=== PATIENT | female | born 1945 | race Caucasian/White ===

== ENCOUNTER 2017-01-23 11:56 | Inpatient (IN) | payer MEDICARE ==
--- NOTE | ~2017-01-23 | DS ---
Discharge Summary [place] [id number] [facility] [place]. [address] NAME: ROSANGELA MOONEY : 43 STATUS : DIS IN PAT#: [id number] AGE: 71 ADM/REG DATE : 01/23/17 MR#: [id number] REPORT SERV DATE: 02/02/17 DICTATED BY: PAIGE NG DATE: 02/01/17 REPORT STATUS : Draft TRANSCRIBED BY: ROMAINE DATE: 02/01/17 Data Collection from hospitalization DISCHARGE DIAGNOSES: 1. 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 2. Hypertension. 3. Type 2 diabetes. 4. History of methicillin-resistant Staphylococcus aureus bacteremia. 5. History of cerebrovascular accident. 6. Restless legs syndrome. 7. Presbyopia. 8. Myopia. 9. History of aortic valve stenosis. 10.History of transient ischemic attack. 11.Chronic diastolic congestive heart failure with ejection fraction around 60%. 12.Depression. 13.Anemia. 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 15.Hypercholesterolemia. 16.Obstructive sleep apnea - on CPAP. 17.Arthritis. 18.Gastroesophageal reflux disease. 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 20.Stage III chronic kidney disease. 21.Hypothyroidism. CONSULTATIONS: 1. Antione Umana M.D. 2. Giana Cline NP. PROCEDURES PERFORMED: Left total knee resection, removal of deep hardware and plate, 01/23/2017. PATHOLOGY: Tissue from left knee - benign soft tissue with fibrosis and old hemorrhage and areas of granulation tissue and mixed inflammation and marked reactive changes. Areas of medullary bone with osteoblastic activity and fibrosis and focal osteoclastic resorption with areas of bone destruction and granulation tissue with focal changes consistent with acute osteomyelitis, normocellular bone marrow particles, orthopedic hardware and cement (gross examination). MEDICATIONS: Elavil 50 mg at bedtime, Lexapro 5 mg daily, Maxipime 1 g IV every six hours as instructed, Colace 100 mg twice a day, Pepcid 20 mg twice a day, ferrous sulfate 300 mg with breakfast and supper, Neurontin 800 mg twice a day, NovoLog injection insulin as instructed, Synthroid 225 mcg daily, Theragran tablets one tablet with breakfast, Bactroban 1 g topically twice a day as instructed - stop on 01/28/2017, Requip 1 mg daily and 2 mg at bedtime, Coumadin as instructed, vancomycin as instructed, Levemir 10 units subcutaneously at bedtime, Tylenol 650 mg orally or rectally every four hours as needed, Mylanta 30 mL as needed, Dulcolax 10-15 mg orally or rectally as needed, dextrose 25 mL IV as needed - 50 mL Discharge Summary [place] [address] [place]. [address] NAME: ROSANGELA MOONEY : 43 STATUS : DIS IN PAT#: [id number] AGE: 71 ADM/REG DATE : 01/23/17 MR#: [id number] REPORT SERV DATE: 02/02/17 DICTATED BY: PAIGE NG DATE: 02/01/17 REPORT STATUS : Draft TRANSCRIBED BY: ROMAINE DATE: 02/01/17 IV as needed, Benadryl 25 mg every six hours as needed, glucagon 1 mg IM as needed, glucose tablets three-six tablets as needed, milk of magnesia 30 mL as needed, MS Contin 15 mg with lunch as needed, Zofran 4 mg every four hours as needed orally or IV, MiraLAX powder one packet twice a day as needed, Proventil 3 mL via inhaler as needed, ProAir two puffs via inhaler as needed, and Percocet 5/325 one to two tablets every four to six hours as needed for pain. CONDITION AT DISCHARGE: Stable. DISPOSITION: The patient was discharged to [facility] on a diabetic diet with activities as instructed. She would follow up with me on 02/05/2017. HOSPITAL COURSE: This is a 71-year-old female who had septic left total knee with long stems and plate. Treatment options were discussed and it was elected to proceed with surgical intervention. She was admitted to the hospital at this time for further evaluation and treatment. Upon admission, she was taken to the operating room where she underwent the above-mentioned procedure. She tolerated this well, and there were no complications. Postoperatively, she was seen by Giana Cline regarding medical management. The patient has type 2 diabetes. She does check her blood sugars at home twice a day. She says her blood sugars average between 100-150. She is normally on Levemir at bedtime as well as sliding scale Novolin 70/30. This was going to be held at this time. Level 2 sliding scale insulin was started. Hypoglycemic protocol will be in place. She was going to undergo diabetes education. She was placed on a diabetic diet. Hemoglobin A1c was going to be obtained. The patient wears a CPAP at home for obstructive sleep apnea. Her home CPAP would be continued at bedtime. Albuterol treatments would be provided as needed for shortness of breath. We would do continuous O2 saturation monitoring while she was an inpatient. She is on levothyroxine for hypothyroidism. TSH was going to be checked. The patient said that ever since she had Guillain-[place] in 1997 she has had residual neuropathy in her fingers and feet, as well as because she is a diabetic, Neurontin, Elavil, and Requip were continued. She has a history of hypertension and congestive heart failure as well as stroke in the past as well as pulmonary hypertension and aortic valve stenosis. Hydralazine would be added as needed. She has a small decubitus area that is approximately dime-sized on her left buttock. Wound Care was consulted to see the patient. On postop day #1, she was seen by Dr. Antione Umana for evaluation and treatment of total knee arthroplasty revision infection. The patient said she has had difficulty with wound healing and the knee never felt quite right. She had done well in general for several months, but over the past one to two months had grown worse with increasing pain to the point that she could no longer stand on it. It became warm and hot over the past few weeks. She has had no fevers, chills, malaise, or flu-like symptoms and nothing to suggest a systemic infection. There had been no trauma or unusual environmental exposures since surgery. She was recently placed on Duricef and was taking that right up to the time of surgery. Prior to surgery, her white blood cell count was 8.3 and it was now 11.4. Creatinine was 1.38. Cultures were growing both gram-positive cocci and gram-negative rods. Followup cultures would be obtained and antibiotics would be adjusted. She was going to be covered empirically with vancomycin and cefepime. She was evaluated by Physical Therapy. She underwent diabetes education. The patient was very Discharge Summary [address] [address] NAME: MORENO MOONEYJOSEPHINE WINKLER : 43 STATUS : DIS IN PAT#: [id number] AGE: 71 ADM/REG DATE : 01/23/17 MR#: [id number] REPORT SERV DATE: 02/02/17 DICTATED BY: PAIGE NG DATE: 02/01/17 REPORT STATUS : Draft TRANSCRIBED BY: ROMAINE DATE: 02/01/17 pale. She denied chest pain or shortness of breath. Her dressing was saturated. She did not have a brace in place. Amitriptyline was being provided. Levemir and sliding scale insulin were continued. She did complain of left leg pain. She was transfused. She was evaluated by Occupational Therapy. On postop day #2, she still complained of pain. Her T- max was 99.4. Vancomycin and cefepime were continued. Discharge planning was performed. On 01/26/2017, she was afebrile. Her lungs were clear. White count was 6.6. Cultures had revealed E. coli/MRSA, it was felt that she would need six weeks of antibiotics. Vancomycin and Maxipime were continued at this time. She had received two units of packed red blood cells. Discharge planning continued. On 01/26/2017, a PICC line was placed. She had normal distal pulses. IV vancomycin and Maxipime were continued. Coumadin was on hold. Discharge instructions were given. Due to her improved and stable condition, she was discharged to [facility] with the above-stated instructions. Information collected by: Obdulia Raymundo I submit the above information as my discharge summary. CARYN/ROMAINE Julita Ng M.D. / [id number] CC: Kaylen Feliz M.D. [facility] Antione Umana M.D.
--- NOTE | ~2017-01-23 | CN ---
Consultation Report [facility] [address] [place]. [address] NAME: ROSANGELA MOONEY : 43 STATUS : ADM IN PAT#: [id number] AGE: 71 ADM/REG DATE : 01/23/17 MR#: [id number] REPORT SERV DATE: 01/24/17 DICTATED BY: GIANA DURAN DATE: 01/24/17 REPORT STATUS : Draft TRANSCRIBED BY: MODL DATE: 01/24/17 CONSULTATION DATE OF CONSULTATION: 01/23/2017 REASON FOR CONSULTATION: Consulted for medical management. REQUESTING PHYSICIAN: Shane Stewart M.D. IDENTIFYING DATA: 1. PCP, Suad Keating M.D. 2. Previous surgeon, Shane Gilliam M.D. 3. Recruiting Manager in the past, Bradley Jones M.D., last seen by Dr. Zelalem Fatima. 4. Pulmonology, Reddy Schneider M.D. 5. Insurance Claims Representative in the past, Dedrick Ball M.D. 6. REEL AND REWINDER OPERATOR oncology, Izaiah Beebe M.D. 7. Neurologist seen in the past, Adriana Goldman M.D. HISTORY OF PRESENT ILLNESS: This is a pleasant 71-year-old female who has had an extensive past medical history which is included a Guillain-[place] in 1997 with neuropathy, residual to her fingers and feet; chronic diastolic congestive heart failure with an EF around 60%; stroke in the past in 1997; hypothyroidism; diabetes type 2; numerous orthopedic surgeries as well as being followed presently for history of ovarian cancer that is metastatic stage IV to her omentum under the care of Dr. Beebe. The patient's history was obtained through interview with the patient as well as review of [facility] and [facility]. The Hospitalist Group has been consulted for medical management postoperatively while the patient is inpatient. PAST MEDICAL HISTORY: 1. MRSA bacteremia. 2. CVA in 1997. 3. Restless legs syndrome. 4. Presbyopia. 5. Myopia. 6. Aortic valve stenosis. 7. TIA. 8. Hypertension. 9. Chronic diastolic congestive heart failure with EF around 60%. 10.Murmur. 11.Previous problem with anesthesia with blood pressure and respiratory compromise. 12.Depression. 13.Anemia. 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 15.High cholesterol. Consultation Report [facility] [address] [place]. [address] NAME: ROSANGELA MOONEY : 43 STATUS : ADM IN PAT#: [id number] AGE: 71 ADM/REG DATE : 01/23/17 MR#: [id number] REPORT SERV DATE: 01/24/17 DICTATED BY: GIANA DURAN DATE: 01/24/17 REPORT STATUS : Draft TRANSCRIBED BY: ROMAINE DATE: 01/24/17 16.DVT to the neck postoperatively in 1995. 17.Esophageal stricture. 18.Obstructive sleep apnea, on CPAP. 19.Arthritis. 20.GERD. 21.Ovarian cancer with metastasis to the omentum, stage IV. 22.Chronic kidney disease, stage 3. 23.Diabetes type 2. 24.Hypothyroidism. 25.Renal calculi. HOME MEDICATIONS: 1. Albuterol MDI two puffs inhalation p.r.n. shortness of breath. 2. Proventil 0.5 mL inhalation solution per nebulizer inhalation p.r.n. 3. Elavil 50 mg p.o. at bedtime. 4. Lasix 20 mg p.o. daily p.r.n. 5. Neurontin 400 mg two tablets p.o. twice a day. 6. Novolin 70/30 for which patient states she takes a sliding scale three times daily. 7. Levemir 10 units subcu at bedtime. 8. Levothyroxine, dose is unverified. The patient states she takes two different kinds of thyroid medications. 9. MS Contin 15 mg p.o. every 12 hours. 10.MS Contin 15 mg p.o. in the afternoon as an additional p.r.n. 11.Centrum multivitamins with minerals one tablet p.o. daily. 12.Percocet 10/325, one tablet, p.o. every four hours p.r.n. pain. 13.Requip 1 mg p.o. twice a day. The patient states she takes one tablet in the morning and two tablets at bedtime. 14.Potassium, undefined dosage, which the patient says she takes p.r.n. when she takes Lasix. ALLERGIES: CODEINE. SOCIAL HISTORY: The patient is a . She has two sons and one daughter. She has a daughter and granddaughter who lives with her. She utilizes a walker as needed to ambulate. She has a three-yana home, but she lives on the main level. No tobacco, alcohol, or illicit drug use. FAMILY HISTORY: Clarification, mother had "heart problems," CHF, and was diabetic. Father had lung cancer and was at 69 years old, which was around 1992. The patient has two brothers, the older had back surgery six months ago and has prostate cancer and the younger brother is obese and has respiratory problems. SURGICAL HISTORY: 1. Left knee total arthroplasty in 1995. 2. Surgery with hardware in August of 2016. Consultation Report [address] [address] NAME: ROSANGELA MOONEY : 43 STATUS : ADM IN [facility]#: [id number] AGE: 71 ADM/REG DATE : 01/23/17 MR#: [id number] REPORT SERV DATE: 01/24/17 DICTATED BY: GIANA DURAN DATE: 01/24/17 REPORT STATUS : Draft TRANSCRIBED BY: ROMAINE DATE: 01/24/17 3. Hysterectomy. 4. Tubal ligation in 1969. 5. Cholecystectomy in 1965. 6. Right carpal tunnel release. 7. Bilateral cataract surgery in 2000. 8. Back surgeries x2. 9. Bone graft surgery to the left femur in 2007. 10.Right total knee arthroplasty in 1995. 11.Left total knee with partial hardware removal on 11/11/2014. 12.C-spine fusion in 1995. 13.Left hip with hardware removal on 11/11/2014. 14.Right Port-A-Cath insertion. 15.Previous tracheostomy. REVIEW OF SYSTEMS: Negative other than what is included in the HPI. The patient is alert and oriented. She has no shortness of breath. No nausea or vomiting. No abdominal pain. No chest pain. No fever. Displays no confusion or agitation. The patient does complain of pain at her op site, which was the revision of her left TKA for which she is receiving IV medication presently. PHYSICAL EXAMINATION: VITAL SIGNS: From today, blood pressure 152/69, respiratory rate 18, heart rate 82, and O2 saturation 99% on 2 L nasal cannula. GENERAL: This is a very pleasant, 71-year-old female. She is obese. She is resting in bed. She does complain of pain postop and is receiving IV medication at present time. NEURO: Her head is atraumatic, normocephalic. She is alert and oriented x3. Cranial nerves intact. Her mood is pleasant and appropriate. NECK: Her neck is supple. Trachea is midline. No JVD noted. No obvious thyromegaly or lymphadenopathy. EENT: Her sclerae are nonicteric. Pupils are equal and reactive to light. Nares are patent. Mucous membranes moist. Tongue is midline. Soft palate rises equally on phonation. CHEST: No pain with palpation. She does have a Port-A-Cath intact to right chest. LUNGS: Clear to auscultation bilaterally. She has normal respiratory effort. She has no increased work of breathing with conversation. CARDIOVASCULAR: S1, S2. She is positive for murmur. No rubs or gallops. She is on defensive monitoring, has a regular rhythm. Rate at 82. ABDOMEN: Obese, soft, nontender. Bowel sounds are hypoactive. No palpable organomegaly. EXTREMITIES: Normal distal pulses. No calf tenderness. No edema. At her ankles, she does have bilateral TEDs intact for DVT prophylaxis. She also has a left knee immobilizer from revision of her left TKA. SKIN: Warm and dry. No unusual rashes or lesions. Normal color and turgor for age. PSYCH: The patient is pleasant, cooperative, appropriate mood and affect. Consultation Report [address] [place]. [address] NAME: ROSANGELA MOONEY : 43 STATUS : ADM IN [facility]#: [id number] AGE: 71 ADM/REG DATE : 01/23/17 MR#: [id number] REPORT SERV DATE: 01/24/17 DICTATED BY: GIANA DURAN DATE: 01/24/17 REPORT STATUS : Draft TRANSCRIBED BY: MODL DATE: 01/24/17 SURGICAL WOUND SITE: She has a dressing that is clean, dry, and intact. LABORATORY DATA: Sodium 136, potassium 4.9, chloride 102, BUN 19, creatinine 1.19, GFR 53, glucose 112, and calcium 8.9. White blood cell 8.3, hemoglobin 9.9, hematocrit 31.8, and platelets 387. INR 1.3. Her blood sugars are 111, 167, and presently 224. On 12/26/2016, she had an EKG that showed a normal sinus rhythm with some sinus arrhythmia at a rate of 65. On 07/30/2016, she had a TTE that displayed left ventricular systolic function at 57%. Mild aortic and pulmonic regurgitation and aortic sclerosis with mild stenosis and borderline right ventricular diastolic function. On 08/03/2014, an echo showed an EF of 60% with normal left ventricular function and mild aortic stenosis. ASSESSMENT AND PLAN: 1. The patient has diabetes type 2. She does check her blood sugars at home twice a day. She says she averages between 100 to 150. The patient is normally on Levemir at bedtime as well as a sliding scale of Novolin 70/30, which will be held at this time. We will place the patient on a sliding scale insulin level 2 with blood sugars a.c. and at bedtime with a hypoglycemic protocol. We will have a calf skinner discuss dietary regimen as well as monitoring of blood glucose. She is on an 1800 ADA diet. She states her daughter cooks at home. Her daughter would need to be available for information regarding the patient's diabetic diet. We will check hemoglobin A1c this morning. 2. Obstructive sleep apnea. The patient wears a CPAP at home. We will continue her home CPAP at bedtime. She has albuterol treatments p.r.n. as needed for shortness of breath and we will do continuous O2 saturation monitoring while she is inpatient. 3. Hypothyroidism. Aware. She is on levothyroxine at home. She is unsure of her dose. She states she takes two types of medications. Staff will need to verify the doses in the morning either with her daughter or her PCP. We will check a TSH in a.m. labs. 4. Neuropathy. Aware. The patient states ever since she had Guillain-Boncarbo in 1997, she has had some residual neuropathy in her fingers and feet as well as being diabetic. We will continue her Neurontin, her Elavil, and Requip. 5. Hypertension. Aware. She does have a history of congestive heart failure, stroke in the past as well as pulmonary hypertension, and aortic valve stenosis. We will continue to monitor blood pressure. We will add hydralazine if needed. Staff can call if the patient's systolic blood pressure is greater than 165. 6. Skin wound noted to patient's left buttock. There is mild decubitus area approximately dime-sized for which Wound Care is consulted to see her in the a.m. 7. Labs for a.m. BMP, CBC, PT, magnesium, phosphorus, TSH, BNP, and hemoglobin A1c. The Hospitalist Group would like to thank you for this consultation. Please let us know if we could be of further assistance. /ROMAINE Giana Duran, Consultation Report [address] [address] NAME: ROSANGELA MOONEY : 43 STATUS : ADM IN [facility]#: [id number] AGE: 71 ADM/REG DATE : 01/23/17 MR#: [id number] REPORT SERV DATE: 01/24/17 DICTATED BY: GIANA DURAN DATE: 01/24/17 REPORT STATUS : Draft TRANSCRIBED BY: ROMAINE DATE: 01/24/17 VEHICLE REFINISHER / [id number] CC: Kaylen Feliz M.D.
--- NOTE | ~2017-01-23 | CN ---
Consultation Report [facility] [address] [place]. [address] NAME: ROSANGELA MOONEY : 43 STATUS : ADM IN PAT#: [id number] AGE: 71 ADM/REG DATE : 01/23/17 MR#: [id number] REPORT SERV DATE: 01/25/17 DICTATED BY: TANO HENDERSON DATE: 01/24/17 REPORT STATUS : Draft TRANSCRIBED BY: MODMiles DATE: 01/24/17 INFECTIOUS DISEASE CONSULT DATE OF CONSULTATION: 01/24/2017 REASON FOR REFERRAL: Evaluation and treatment of total knee arthroplasty revision infection. HISTORY OF PRESENT ILLNESS: The patient is a 71-year-old female. She has history of hypertension, diabetes mellitus, congestive heart failure, hypothyroidism, gout, diabetes, ovarian cancer, and aortic stenosis. She had Guillain-[place] syndrome in 1997, cerebrovascular accident at the same time. She has had a hip open reduction internal fixation serious infection 2013 with Staph. She had a total knee arthroplasty revision done because of failure of prosthesis in 07/2016. She said she had difficulty with wound healing and the knee never felt quite right but generally did well for several months but in the last one to two months has grown worse with increasing pain to the point she could no longer stand on it. It grew warm and hot within the last few weeks. She had no fevers, chills, malaise, or flu-like symptoms, nothing to suggest a systemic infection. She has had no trauma or unusual environmental exposures to it since the surgery. She had been recently placed on Duricef and she was taking that right up to the time of surgery. PAST MEDICAL HISTORY: Otherwise unremarkable. MEDICATIONS: She has received perioperative Ancef and vancomycin. ALLERGIES: SHE HAS NO KNOWN ANTIMICROBIAL ALLERGIES. SOCIAL HISTORY: She is , lives with daughter and granddaughter, nonsmoker. No history of alcohol or substance abuse. FAMILY HISTORY: Noncontributory. PHYSICAL EXAMINATION: GENERAL: Nontoxic, elderly, female, in no acute distress. She is alert and oriented x3. VITAL SIGNS: Temperature at present is 97.7, pulse 67, respirations 12, and blood pressure 88/39. Weight is 104 kg. HEENT: Sclerae clear. No oral lesions. NECK: Supple. LUNGS: Clear. HEART: Regular rate and rhythm. ABDOMEN: Soft, nontender. Positive bowel sounds. EXTREMITIES: The left knee where she had removal of the prosthesis last evening is covered by surgical dressing, which is dry at present. No other extremity lesions noted. LABORATORY DATA: Her white blood cell count prior to surgery was 8.3, it is 11.4 today with Consultation Report [place] [id number] [place]. [address] NAME: ROSANGELA MOONEY : 43 STATUS : ADM IN PAT#: [id number] AGE: 71 ADM/REG DATE : 01/23/17 MR#: [id number] REPORT SERV DATE: 01/25/17 DICTATED BY: TANO HENDERSON DATE: 01/24/17 REPORT STATUS : Draft TRANSCRIBED BY: MODMiles DATE: 01/24/17 hematocrit 23.2, platelets 260, unremarkable differential. BUN and creatinine 21 and 1.38. The cultures are growing both gram-positive cocci and gram-negative rods, those do reflect cultures taken prior to surgery and at surgery yesterday. IMPRESSION: Infected total knee arthroplasty revision, appears to be due to two different organisms. RECOMMENDATION: 1. We will follow up cultures tomorrow, adjust antibiotics as indicated. 2. For now, cover empirically with vancomycin, cefepime to cover the types of organisms that have been seen on early growth. 3. Finally, I will follow the patient with you. I appreciate very much your consulting on this patient. JOSEPHINE/ROMAINE Tano Henderson M.D. / [id number] CC: Kaylen Feliz M.D.
--- NOTE | ~2017-01-23 | OP ---
Record Of Operation [facility] [address] [place]. 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 PROCEDURE: Left total knee resection, removal deep hardware plate. 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 DESCRIPTION OF PROCEDURE: The patient was taken to the operating room and placed supine on the table in normal fashion without incident. General anesthetic was induced per the anesthesiologist. Patient was carefully positioned, padded, prepped, and draped in normal sterile fashion. Left lower extremity was elevated tourniquet inflated to 350 with a sterile tourniquet. Sharp dissection was made through the old incision with electrocautery through the fat. There was abundant thick and nonpliable scar tissue basically in one thick layer of the skin tendon and down to the bone. This was all meticulously dissected much of the scar tissue, resected, but still required a quad tendon turned down because it was too stiff to allow any motion. What appeared to be gross purulence from around the tibia and up in the thigh were sent for cultures. The dissection proceeded with periosteal elevation, resection of arthrofibrotic tissue, and lysis of adhesions to reveal the plate, which was removed by taking out the screws. The femoral and tibial components were removed with osteotome. Cement was debrided as was granulation tissue. The oscillating saw used to remove the patella and cement. There was severe osteoporosis throughout. The bony cuts were freshened up with soft intramedullary canals debrided with curette and rongeur meticulously. All was copiously irrigated with pulsatile lavage x3 liters. We then completely re-draped and re-gowned for the new setup, irrigated with three more liters of pulsatile lavage, and placed a cement block from three packs of premixed antibiotic cement with 2 g of vancomycin added in a doughy phase, and the knee held in place until it was hardened. The knee was then closed in a layered fashion. The wound was dressed sterilely. Patient awakened and taken to the postanesthesia care unit without incident. COMPLICATIONS: None. SPECIMENS: Components and cultures as described. BLOOD LOSS: Trace. ANA/ROMAINE Julita Ng M.D. Record Of Operation [address] [address] NAME: ROSANGELA MOONEY : 43 STATUS : ADM IN [facility]#: [id number] AGE: 71 ADM/REG DATE : 01/23/17 MR#: [id number] REPORT SERV DATE: 01/24/17 DICTATED BY: PAIGE NG DATE: 01/24/17 REPORT STATUS : Draft TRANSCRIBED BY: ROMAINE DATE: 01/24/17 / [id number] CC: Kaylen Feliz M.D.
[~2017-01-23 11:56] MED LIST: *UNABLE1; ALBUTEROL5 INH; AMARYL4 PO; AMIT50 PO; ASAB PO; ATROVENT HFA17 MCG INH; BARRIER CREAM TOP; BEN25 PO; BIST PO; CENTRUM PO; COREG3 PO; DEMA100 PO; DIL2TAB PO; DITROXL5 PO; DSS PO; ELAVIL PO; FERROUS SULF324 MG PO; FIORICET OR; GABAPENTIN PO; GENTEAL 15 ML O15 ML OPH; GLUCAGON SC; HALF81 PO; HUMULIN SC; INSNOV7030 SC; INSNOVR; INSNOVR SC; INSULIN 70/30 SC; IRON325 MG PO; K500 PO; KLONO2 PO; KLONO5 PO; KLOR-CON 1010 MEQ PO; KLOR-CON M1010 MEQ PO; KLOR-CON M2020 MEQ PO; L20 PO; L40 PO; LACTINEXT PO; LEVEMIR SC; LEVOTHYROXIN150 MCG PO; LEVOTHYROXIN200 MCG PO; LEVOTHYROXIN50 MCG PO; LEVOTHYROXINE PO; LIOR10 PO; LORTAB10 PO; LOVENOX40 SC; MIRALAXPKT OR; MIRALAXPKT PO; MSCONT15 PO; MULTI-VIT/F1 OR; MULTIVIT/MIN PO; NATALVIT1 TAB PO; NATURA2 OP; NEUR300 PO; NEUR800 PO; NORCO1 TAB PO; NOVOLOG SC; OXYCON10 PO; OXYCON20 PO; PCET PO; PEP20 PO; PEPCID40 MG OR; PERCOCET 10/3251 TAB PO; PERCOCET1 TA4 PO; POTASSIUM PO; PR12.5R PR; PRAVAC PO; PRAVACHOL40 MG PO; PRENAVITE PO; PRIN5 PO; PROAIR HFA INH; PROVENT20 INH; PROVENTSOL INH; PYR100B PO; REFRESH1 % OP; REQUIP PO; REQUIP1 PO; SOMA250 MG OR; SOMATAB PO; SYNTHROID200 MCG PO; VENTOLIN HFA INH; VITAMIN D31000 UNIT PO; VITC500 PO; WELCHOL 625 MG625 MG PO; ZANAFLEX 4 MG TA4 MG PO; ZOL100 PO; ZOL50 PO; [UNRECOGNIZED DRUG - OTHER]
[2017-01-23 13:13] LABS: ASCORBIC ACID (UR NOT ORDER) NEG (NEG); BILIRUBIN, URINE NEGATIVE (NEG); KETONE, URINE NEGATIVE (NEG); LEUKOCYTE ESTERASE(NOT OR NEG (NEG); WBC (NOT ORDERED) (RFLEX) < 1 (0-5)
[2017-01-23 13:47] LABS: INTERNATIONAL NORMAL RATI 1.3 UNITS (-)
[2017-01-23 13:48] LABS: PROTIME (NOT ORD) 15.8 SEC (12.0-14.5)
[2017-01-23 13:56] LABS: A/G RATIO 0.4 (0.7-1.9); ALBUMIN 2.6 G/DL (3.5-5.0); ALKALINE PHOSPHATASE 120 U/L (45-117); BUN (BLOOD UREA NITROGEN) 19 MG/DL (6-23); CALCIUM, SERUM 8.9 MG/DL (8.5-10.4); CHLORIDE, SERUM 102 MMOL/L (96-112); CO2 (CARBON DIOXIDE) 29 MMOL/L (24-34); CREATININE 1.19 MG/DL (0.55-1.02); GFR AFRICAN AMERICAN 53 ML/MIN (>=60); GFR NON AFRICAN AMERICAN 46 ML/MIN (>=60); GLOBULIN 6.7 G/DL (2.5-4.1); GLUCOSE, SERUM 112 MG/DL (60-99); POTASSIUM, SERUM 4.9 MMOL/L (3.5-5.3); SGOT(AST) 15 U/L (5-40); SGPT(ALT) 9 U/L (5-65); SODIUM, SERUM 136 MMOL/L (135-148); TOTAL BILIRUBIN 0.5 MG/DL (0-1.2); TOTAL PROTEIN 9.3 G/DL (6.0-8.5)
[2017-01-23 14:24] LABS: BASOPHILS 0.2 %; BASOPHILS ABSOLUTE 0.02 10/3/uL (0.0-0.16); EOSINOPHILS 1.3 %; EOSINOPHILS ABSOLUTE 0.11 10/3/uL (0.0-0.53); HEMATOCRIT 31.8 % (36.0-48.0); HEMOGLOBIN 9.9 g/dL (12.0-16.0); IMMATURE GRANULOCYTES 0.1 %; IMMATURE GRANULOCYTES ABSOLUTE 0.01 10/3/uL (0.0-0.11); LYMPHOCYTES 28.4 %; LYMPHOCYTES ABSOLUTE 2.35 10/3/uL (0.67-4.30); MANUAL DIFF NO %; MEAN CORPUS HGB CONC 31.1 g/dL (32.0-36.0); MEAN CORPUSCULAR HEMOGLOB 25.4 pg (26.0-34.0); MEAN CORPUSCULAR VOLUME 81.7 fL (80-100); MONOCYTES 5.7 %; MONOCYTES ABSOLUTE 0.47 10/3/uL (0.21-1.20); NEUTROPHILS 64.3 %; NEUTROPHILS ABSOLUTE 5.32 10/3/uL (2.02-8.40); PLATELET COUNT 387 10/3/uL (150-400); RED CELL COUNT 3.89 10/6/uL (4.0-5.6); WHITE BLOOD CELLS 8.3 10/3/uL (4.5-10.5)
[2017-01-24 06:05] LABS: BASOPHILS 0.1 %; BASOPHILS ABSOLUTE 0.01 10/3/uL (0.0-0.16); EOSINOPHILS 0 %; IMMATURE GRANULOCYTES 0.4 %; IMMATURE GRANULOCYTES ABSOLUTE 0.04 10/3/uL (0.0-0.11); LYMPHOCYTES 6.2 %; LYMPHOCYTES ABSOLUTE 0.71 10/3/uL (0.67-4.30); MEAN CORPUS HGB CONC 30.6 g/dL (32.0-36.0); MEAN CORPUSCULAR HEMOGLOB 24.9 pg (26.0-34.0); MEAN CORPUSCULAR VOLUME 81.4 fL (80-100); MEAN PLATELET VOLUME 9.1 fL (9.2-13.0); MONOCYTES 6.7 %; MONOCYTES ABSOLUTE 0.76 10/3/uL (0.21-1.20); NEUTROPHILS 86.6 %; NEUTROPHILS ABSOLUTE 9.87 10/3/uL (2.02-8.40); RBC DISTRIBUTION WIDTH 15.8 % (12.0-16.0); WHITE BLOOD CELLS 11.4 10/3/uL (4.5-10.5)
[2017-01-24 06:09] LABS: INTERNATIONAL NORMAL RATI 1.4 UNITS (-); PROTIME (NOT ORD) 17.3 SEC (12.0-14.5)
[2017-01-24 06:10] LABS: HEMATOCRIT 23.2 % (36.0-48.0); HEMOGLOBIN 7.1 g/dL (12.0-16.0); PLATELET COUNT 260 10/3/uL (150-400); RED CELL COUNT 2.85 10/6/uL (4.0-5.6)
[2017-01-24 06:12] LABS: MANUAL DIFF NO %
[2017-01-24 06:25] LABS: BUN (BLOOD UREA NITROGEN) 21 MG/DL (6-23); CHLORIDE, SERUM 102 MMOL/L (96-112); CO2 (CARBON DIOXIDE) 27 MMOL/L (24-34); CREATININE 1.38 MG/DL (0.55-1.02); GFR AFRICAN AMERICAN 44 ML/MIN (>=60); GFR NON AFRICAN AMERICAN 38 ML/MIN (>=60); PHOSPHORUS, SERUM 4.3 MG/DL (2.5-4.5); POTASSIUM, SERUM 5.1 MMOL/L (3.5-5.3); SODIUM, SERUM 135 MMOL/L (135-148)
[2017-01-24 06:26] LABS: CALCIUM, SERUM 7.9 MG/DL (8.5-10.4); GLUCOSE, SERUM 225 MG/DL (60-99)
[2017-01-24 06:41] LABS: B NATRIURETIC PEPTIDE (BNP) 226.3 PG/ML (< 100.0)
[2017-01-24] MEDS ORDERED: MORPHINE ER PO (11:27)
[2017-01-24] MEDS ORDERED: LEXAPRO5 MG PO (11:31)
[2017-01-24] MEDS ORDERED: REQUIP2 PO (11:32)
[2017-01-25 05:21] LABS: BASOPHILS 0.2 %; BASOPHILS ABSOLUTE 0.01 10/3/uL (0.0-0.16); EOSINOPHILS 2.7 %; EOSINOPHILS ABSOLUTE 0.17 10/3/uL (0.0-0.53); HEMOGLOBIN 8.3 g/dL (12.0-16.0); IMMATURE GRANULOCYTES 0.2 %; IMMATURE GRANULOCYTES ABSOLUTE 0.01 10/3/uL (0.0-0.11); LYMPHOCYTES 27.8 %; LYMPHOCYTES ABSOLUTE 1.76 10/3/uL (0.67-4.30); MEAN CORPUSCULAR HEMOGLOB 26.3 pg (26.0-34.0); MEAN CORPUSCULAR VOLUME 81.6 fL (80-100); MEAN PLATELET VOLUME 9.4 fL (9.2-13.0); MONOCYTES 10.6 %; MONOCYTES ABSOLUTE 0.67 10/3/uL (0.21-1.20); NEUTROPHILS 58.5 %; NEUTROPHILS ABSOLUTE 3.71 10/3/uL (2.02-8.40); PLATELET COUNT 244 10/3/uL (150-400); RED CELL COUNT 3.15 10/6/uL (4.0-5.6)
[2017-01-25 05:22] LABS: HEMATOCRIT 25.7 % (36.0-48.0); MANUAL DIFF NO %; MEAN CORPUS HGB CONC 32.3 g/dL (32.0-36.0); WHITE BLOOD CELLS 6.3 10/3/uL (4.5-10.5)
[2017-01-25 05:28] LABS: INTERNATIONAL NORMAL RATI 1.9 UNITS (-)
[2017-01-25 05:32] LABS: BUN (BLOOD UREA NITROGEN) 23 MG/DL (6-23); CHLORIDE, SERUM 106 MMOL/L (96-112); CO2 (CARBON DIOXIDE) 26 MMOL/L (24-34); CREATININE 1.28 MG/DL (0.55-1.02); GFR AFRICAN AMERICAN 48 ML/MIN (>=60); GFR NON AFRICAN AMERICAN 42 ML/MIN (>=60); GLUCOSE, SERUM 141 MG/DL (60-99); POTASSIUM, SERUM 4.5 MMOL/L (3.5-5.3); SODIUM, SERUM 137 MMOL/L (135-148)
[2017-01-25 05:34] LABS: PROTIME (NOT ORD) 21.3 SEC (12.0-14.5)
[2017-01-26 06:05] LABS: CALCIUM, SERUM 8.1 MG/DL (8.5-10.4); CHLORIDE, SERUM 105 MMOL/L (96-112); CO2 (CARBON DIOXIDE) 29 MMOL/L (24-34); CREATININE 1.03 MG/DL (0.55-1.02); GFR AFRICAN AMERICAN 63 ML/MIN (>=60); GFR NON AFRICAN AMERICAN 54 ML/MIN (>=60); GLUCOSE, SERUM 133 MG/DL (60-99); POTASSIUM, SERUM 4.7 MMOL/L (3.5-5.3); SODIUM, SERUM 139 MMOL/L (135-148)
[2017-01-26 06:06] LABS: BUN (BLOOD UREA NITROGEN) 19 MG/DL (6-23)
[2017-01-26 06:09] LABS: INTERNATIONAL NORMAL RATI 4.2 UNITS (-); PROTIME (NOT ORD) 40.4 SEC (12.0-14.5)
[2017-01-26 06:15] LABS: BASOPHILS 0.3 %; BASOPHILS ABSOLUTE 0.02 10/3/uL (0.0-0.16); EOSINOPHILS 2.4 %; EOSINOPHILS ABSOLUTE 0.16 10/3/uL (0.0-0.53); HEMATOCRIT 26.9 % (36.0-48.0); HEMOGLOBIN 8.2 g/dL (12.0-16.0); IMMATURE GRANULOCYTES 0.3 %; IMMATURE GRANULOCYTES ABSOLUTE 0.02 10/3/uL (0.0-0.11); LYMPHOCYTES 24.5 %; LYMPHOCYTES ABSOLUTE 1.63 10/3/uL (0.67-4.30); MEAN CORPUSCULAR HEMOGLOB 25.3 pg (26.0-34.0); MEAN PLATELET VOLUME 9.4 fL (9.2-13.0); MONOCYTES 8.4 %; MONOCYTES ABSOLUTE 0.56 10/3/uL (0.21-1.20); NEUTROPHILS 64.1 %; NEUTROPHILS ABSOLUTE 4.25 10/3/uL (2.02-8.40); PLATELET COUNT 274 10/3/uL (150-400); RBC DISTRIBUTION WIDTH 16.2 % (12.0-16.0); RED CELL COUNT 3.24 10/6/uL (4.0-5.6); WHITE BLOOD CELLS 6.6 10/3/uL (4.5-10.5)
[2017-01-26 06:16] LABS: MANUAL DIFF NO %; MEAN CORPUS HGB CONC 30.5 g/dL (32.0-36.0)
[2017-03-18] MEDS ORDERED: LEXAPRO20 PO (13:46)
[2017-03-18] MEDS ORDERED: MELATONIN1 M1 PO (13:48)
[2017-03-18] MEDS ORDERED: LEVAQUIN5T PO (13:48)
[2017-03-18] MEDS ORDERED: TRAZ50 PO (13:50)
[2017-03-18] MEDS ORDERED: C2 PO (13:51)
[2017-03-18] MEDS ORDERED: AVINZA30 PO (13:51)
[2017-03-18] MEDS ORDERED: T PO (13:52)
[2017-03-18] MEDS ORDERED: ZOFRAN4 PO (13:53)
[2017-03-18] MEDS ORDERED: DSS PO (13:56)
[2017-03-18] MEDS ORDERED: PEP20 PO (13:57)
[2017-03-18] MEDS ORDERED: PERCOCET 10/3251 TAB PO (13:58)
[2017-03-18] MEDS ORDERED: HUMALOGPEN SC (14:02)
[2017-03-18] MEDS ORDERED: FERROUS SULF325 M1 PO (14:04)
== END 2017-01-26 15:37 | DRG 464 ==
LOC: SDC/OF 11:56 → 3SO 22:12
PROVIDERS: Nurse Practitioner Family; Specialist
PROC: 0SHD08Z Insertion of Spacer into Left Knee Joint, Open Approach (ICD-10-PCS; 2017-01-23)
PROC: 0SPD0JZ Removal of Synthetic Substitute from Left Knee Joint, Open Approach (ICD-10-PCS; principal; 2017-01-23 14:00)
PROC: 30233N1 Transfusion of Nonautologous Red Blood Cells into Peripheral Vein, Percutaneous Approach (ICD-10-PCS; 2017-01-24)
DX: T84.54XA Infection and inflammatory reaction due to internal left knee prosthesis, initial encounter (principal); M00.9 Pyogenic arthritis, unspecified; N17.9 Acute kidney failure, unspecified; I11.0 Hypertensive heart disease with heart failure; I50.32 Chronic diastolic (congestive) heart failure; E11.9 Type 2 diabetes mellitus without complications; D62 Acute posthemorrhagic anemia; G47.33 Obstructive sleep apnea (adult) (pediatric); E03.9 Hypothyroidism, unspecified
CPT/HCPCS: 36415; 80048; 80053; 81001; 82962; 83036; 83735; 83880; 84100; 84443; 85025; 85610; 86850; 86900; 86901; 86920; 87015; 87070; 87075; 87077; 87102; 87116; 87186; 87205; 87641; 88300; 88304; 88311; 93005; 97110-GO; 97110-GP; 97162-GP; 97166-GO; 97530-GP; 97535-GO; A9270-GY; G8978-CL-GP; G8979-CK-GP; J0690; J0692; J1170; J1885; J2250; J2270; J2370; J2405; J2710; J2795; J3010; J3370; P9016